=== PATIENT | male | born 1955 | race African-American/Black ===

== ENCOUNTER 2022-04-05 19:43 | Inpatient (IN) | payer OTHER, MEDICAID ==
[~2022-04-05] VITALS: Ht 180.3 cm; Wt 106.6 kg
[2022-04-05 23:37] LABS: EOSINOPHILS % 1.5 % (0.0-5.0); HEMATOCRIT. 39.3 % (42.0-52.0); HEMOGLOBIN. 13.1 g/dL (14.0-18.0); LYMPHOCYTES % 24.8 % (20.0-50.0); MEAN CORPUSCULAR HEMOGLOBIN 28.4 pg (28.0-32.0); MEAN CORPUSCULAR VOLUME 84.8 fL (80.0-94.0); MEAN PLATELET VOLUME 7.5 fl (7.4-10.4); MONOCYTES % 8.3 % (2.0-8.0); NEUTROPHILS % 64.4 % (40.0-76.0); PLATELET 346 x1000/uL (130-400); RED BLOOD CELL COUNT 4.63 mill/uL (4.7-6.1); RED CELL DISTRIBUTION WIDTH 15.5 % (11.6-14.6)
[2022-04-06 00:33] LABS: CHLORIDE 106 mEq/L (98-107)
[2022-04-06 01:56] LABS: CLARITY URINE CLEAR (CLEAR); COLOR URINE DARK YELLOW (YELLOW); KETONES URINE TRACE (NEGATIVE); LEUKOCYTE ESTERASE URINE NEGATIVE (NEGATIVE); NITRITE URINE NEGATIVE (NEGATIVE); OCCULT BLOOD URINE TRACE (NEGATIVE); PROTEIN URINE 2+ (NEGATIVE); SPECIFIC GRAVITY URINE 1.038 (1.005-1.030)
[2022-04-06] MEDS ORDERED: ONDANSETRON HCL 4MG/2ML INJ IV PRN (02:30)
[2022-04-06] MEDS ORDERED: HYDROCODONE/ACETAMINOPHEN 5/325MG TABLET PO PRN (02:30)
[2022-04-06] MEDS ORDERED: GUAIFENESIN 200MG/10ML SUGAR FREE UDC PO PRN (02:30)
[2022-04-06] MEDS ORDERED: MAGNESIUM/ALUMINUM HYDROXIDE/SIMETHICONE 30ML UDC PO PRN ×2 (02:30→17:00)
[2022-04-06] MEDS ORDERED: CLONIDINE 0.1MG TABLET PO PRN (02:30)
[2022-04-06] MEDS ORDERED: ACETAMINOPHEN 325MG TABLET PO PRN ×2 (02:30)
[2022-04-06 06:14] LABS: BASOPHILS % 0.8 % (0.0-2.0); HEMATOCRIT. 37.7 % (42.0-52.0); HEMOGLOBIN. 12.6 g/dL (14.0-18.0); LYMPHOCYTES % 16.2 % (20.0-50.0); MEAN CORPUSCULAR HEMOGLOBIN 28.2 pg (28.0-32.0); MEAN CORPUSCULAR VOLUME 84.3 fL (80.0-94.0); MEAN PLATELET VOLUME 7.6 fl (7.4-10.4); MONOCYTES % 6.7 % (2.0-8.0); NEUTROPHILS % 75.3 % (40.0-76.0); PLATELET 331 x1000/uL (130-400); RED BLOOD CELL COUNT 4.47 mill/uL (4.7-6.1); RED CELL DISTRIBUTION WIDTH 15.3 % (11.6-14.6)
[2022-04-06 06:33] LABS: CHLORIDE 108 mEq/L (98-107)
[2022-04-06 06:50] LABS: PHOSPHORUS 3.3 mg/dL (2.5-4.9)
[2022-04-06 06:56] LABS: FOLIC ACID (FOLATE) SERUM 9.5 ng/mL (>5.38)
[2022-04-06 07:08] LABS: VITAMIN B12 SERUM 363 pg/mL (211-911)
[2022-04-06] MEDS ORDERED: POTASSIUM CHLORIDE INJ 40 MEQ in DEXT 5% WATER 250 ML IV ONE (10:00)
[2022-04-06] MEDS ORDERED: KCL 20MEQ/100ML X 2 FOR TOTAL KCL 40MEQ/200ML IV SCH (10:00)
[2022-04-06] MEDS ORDERED: NALOXONE HCL 0.4MG/ML VIAL IV PRN (10:15)
[2022-04-06] MEDS: ENOXAPARIN 30MG/0.3ML SYR SUBCUT SCH ×2 (10:36→22:29)
[2022-04-06 15:15] VITALS: BP 142/80
[2022-04-06 16:00] VITALS: BP 142/80
[2022-04-06] MEDS ORDERED: MAGNESIUM HYDROXIDE 400MG/5ML 30ML UDC PO PRN (17:00)
[2022-04-06] MEDS: PANTOPRAZOLE SODIUM 40 MG/VIAL IV SCH (17:56)
[2022-04-06] MEDS ORDERED: IOHEXOL-350 100 ML BOTTLE ONE (18:12)
[2022-04-06] MEDS ORDERED: PNEUMOCOCCAL 23-VAL P-SAC VAC 0.5 ML IM ONE (18:45)
[2022-04-06 20:00] VITALS: BP 151/95
[2022-04-07] VITALS: BP 148/81
[2022-04-07 04:00] VITALS: BP 153/87
[2022-04-07 08:00] VITALS: BP 149/95
[2022-04-07 08:03] LABS: BASOPHILS % 0.9 % (0.0-2.0); EOSINOPHILS % 0.9 % (0.0-5.0); HEMATOCRIT. 38.1 % (42.0-52.0); HEMOGLOBIN. 12.5 g/dL (14.0-18.0); LYMPHOCYTES % 17.3 % (20.0-50.0); MEAN CORPUSCULAR VOLUME 85.1 fL (80.0-94.0); MONOCYTES % 6.9 % (2.0-8.0); PLATELET 346 x1000/uL (130-400); RED BLOOD CELL COUNT 4.47 mill/uL (4.7-6.1); RED CELL DISTRIBUTION WIDTH 15.6 % (11.6-14.6)
[2022-04-07] MEDS ORDERED: SIMETHICONE/SOD BICARB/CIT AC 1 EACH GRAN.EF.PK ONE (08:23)
[2022-04-07] MEDS ORDERED: BARIUM SULFATE 176 GM SUSP.RECON ONE (08:23)
[2022-04-07] MEDS ORDERED: EZ-HD SUSPENSION(BARIUM SULFATE 340GM) PO ONE (08:23)
[2022-04-07] MEDS: PANTOPRAZOLE SODIUM 40 MG/VIAL IV SCH (09:27)
[2022-04-07] MEDS: ENOXAPARIN 30MG/0.3ML SYR SUBCUT SCH ×2 (09:27→21:23)
[2022-04-07] MEDS: SODIUM CHLORIDE 0.9% 1,000 ML IV SCH ×2 (09:28→14:38)
[2022-04-07 10:59] LABS: FERRITIN 418 ng/mL (22-322)
[2022-04-07 11:10] LABS: HEPATITIS B SURFACE ANTIGEN NEGATIVE
[2022-04-07 12:00] VITALS: BP 147/98
[2022-04-07] MEDS: FUROSEMIDE 40MG/4ML VIAL IVP SCH ×2 (14:36→17:38)
[2022-04-07] MEDS: METOPROLOL TARTRATE 25MG TABLET PO SCH ×2 (14:37→21:24)
[2022-04-07] MEDS: SPIRONOLACTONE 25MG TABLET PO SCH (14:37)
[2022-04-07 16:00] VITALS: BP 112/83
[2022-04-07] MEDS ORDERED: HYDROXYZINE 25MG TABLET PO PRN (17:00)
[2022-04-07 20:00] VITALS: BP 115/84
[2022-04-07] MEDS ORDERED: POTASSIUM CHLORIDE 20MEQ TABLET SR PO NR (20:00)
[2022-04-07] MEDS ORDERED: BENZTROPINE MESYLATE 1MG TABLET PO SCH (21:00)
[2022-04-07] MEDS: QUETIAPINE FUMARATE 50MG TABLET PO SCH (21:23)
[2022-04-08] VITALS: BP 125/84
[2022-04-08 04:00] VITALS: BP 127/86
[2022-04-08] MEDS: FUROSEMIDE 40MG/4ML VIAL IVP SCH (05:50)
[2022-04-08 08:00] VITALS: BP 141/97
[2022-04-08] MEDS: SPIRONOLACTONE 25MG TABLET PO SCH (08:47)
[2022-04-08] MEDS: PANTOPRAZOLE SODIUM 40 MG/VIAL IV SCH (08:47)
[2022-04-08] MEDS: QUETIAPINE FUMARATE 50MG TABLET PO SCH (08:47)
[2022-04-08] MEDS: ENOXAPARIN 30MG/0.3ML SYR SUBCUT SCH (08:47)
[2022-04-08] MEDS: METOPROLOL TARTRATE 25MG TABLET PO SCH (08:47)
[2022-04-08 09:25] LABS: BASOPHILS % 0.7 % (0.0-2.0); EOSINOPHILS % 1.3 % (0.0-5.0); HEMATOCRIT. 38.7 % (42.0-52.0); HEMOGLOBIN. 12.6 g/dL (14.0-18.0); LYMPHOCYTES % 20.2 % (20.0-50.0); MEAN CORPUSCULAR HEMOGLOBIN 28.3 pg (28.0-32.0); MEAN PLATELET VOLUME 7.7 fl (7.4-10.4); MONOCYTES % 8.4 % (2.0-8.0); NEUTROPHILS % 69.4 % (40.0-76.0); PLATELET 306 x1000/uL (130-400); RED BLOOD CELL COUNT 4.45 mill/uL (4.7-6.1)
[2022-04-08 12:00] VITALS: BP 138/98
[2022-04-08] MEDS ORDERED: METO25TA6 PO (13:32)
[2022-04-08] MEDS ORDERED: QUET50TA PO (13:32)
[2022-04-08] MEDS ORDERED: BENZ1TAB7 PO (13:32)
[2022-04-08] MEDS ORDERED: FURO-151 PO (13:32)
[2022-04-08 14:21] VITALS: BP 138/98
== END 2022-04-08 15:50 | disposition home or self-care (01) | DRG 291 ==
LOC: ER 19:43 → SUPCPDRO 04-06 02:22 → MICUSO 04-06 04:05 → 8WST 04-06 15:15
PROVIDERS: ADMIT Internal Medicine; ATTEND Internal Medicine
DX: I13.0 Hypertensive heart and chronic kidney disease with heart failure and stage 1 through stage 4 chronic kidney disease, or unspecified chronic kidney disease (principal); I50.23 Acute on chronic systolic (congestive) heart failure; F20.0 Paranoid schizophrenia; N17.9 Acute kidney failure, unspecified; R17 Unspecified jaundice; E11.22 Type 2 diabetes mellitus with diabetic chronic kidney disease; Z20.822 Contact with and (suspected) exposure to COVID-19; R19.7 Diarrhea, unspecified; N18.9 Chronic kidney disease, unspecified; R13.10 Dysphagia, unspecified; E87.6 Hypokalemia; E11.65 Type 2 diabetes mellitus with hyperglycemia; R77.8 Other specified abnormalities of plasma proteins; R06.01 Orthopnea; D64.9 Anemia, unspecified; I25.2 Old myocardial infarction; Z91.14 Patient's other noncompliance with medication regimen; R10.13 Epigastric pain; D35.02 Benign neoplasm of left adrenal gland
CPT/HCPCS: 36415; 71045; 74176; 74220; 76770; 78580; 80048; 80053; 80076; 81003; 82248; 82607; 82728; 82746; 83540; 83550; 83735; 83880; 84100; 84443; 84484; 85025; 85379; 86705; 86709; 86803; 87015; 87045; 87340; 87426; 87427; 87449; 87493; 89055; 90732; 93005; 93306; 93970; 99285; C9113; J1650; J1940; J3480; J7030; J7517; Q9967

== ENCOUNTER 2022-05-01 22:46 | Emergency (ER) | payer OTHER, MEDICAID ==
[~2022-05-01] VITALS: Ht 172.7 cm; Wt 89.2 kg
[~2022-05-01 22:46] MED LIST: BENZ1TAB7 PO; FURO-151 PO; METO25TA6 PO; QUET50TA PO
[2022-05-01 23:59] LABS: BASOPHILS % 0.8 % (0.0-2.0); EOSINOPHILS % 1.1 % (0.0-5.0); HEMOGLOBIN. 11.7 g/dL (14.0-18.0); LYMPHOCYTES % 11.4 % (20.0-50.0); MEAN CORPUSCULAR HEMOGLOBIN 27.8 pg (28.0-32.0); MEAN CORPUSCULAR VOLUME 85.7 fL (80.0-94.0); MEAN PLATELET VOLUME 6.9 fl (7.4-10.4); MONOCYTES % 7.8 % (2.0-8.0); NEUTROPHILS % 78.9 % (40.0-76.0); PLATELET 343 x1000/uL (130-400); RED CELL DISTRIBUTION WIDTH 16.1 % (11.6-14.6)
[2022-05-02 00:08] LABS: CHLORIDE 105 mEq/L (98-107)
[2022-05-02 00:15] LABS: CREATINE KINASE 178 IU/L (39-308); ETHANOL BLOOD < 10 mg/dL
[2022-05-02 02:37] LABS: CLARITY URINE CLEAR (CLEAR); COLOR URINE YELLOW (YELLOW); KETONES URINE NEGATIVE (NEGATIVE); LEUKOCYTE ESTERASE URINE NEGATIVE (NEGATIVE); NITRITE URINE NEGATIVE (NEGATIVE); OCCULT BLOOD URINE NEGATIVE (NEGATIVE); PH URINE 5.5 (4.5-8.0); PROTEIN URINE 1+ (NEGATIVE); SPECIFIC GRAVITY URINE 1.009 (1.005-1.030)
[2022-05-02] MEDS ORDERED: OLANZAPINE 10MG TABLET PO SCH (02:45)
[2022-05-02] MEDS ORDERED: LACTULOSE 20G/30ML UDC PO NR (02:45)
[2022-05-02 03:12] LABS: *AMPHETAMINES SCREEN URINE NEGATIVE (NEGATIVE); *BARBITURATES SCREEN URINE NEGATIVE (NEGATIVE); *BENZODIAZEPINES SCREEN URINE NEGATIVE (NEGATIVE); *COCAINE SCREEN URINE NEGATIVE (NEGATIVE); CANNABINOID URINE SCREEN PRESUMTIVE POSITIVE (NEGATIVE); METHADONE URINE SCREEN NEGATIVE (NEGATIVE); OPIATES URINE SCREEN NEGATIVE (NEGATIVE); PHENCYCLIDINE URINE SCREEN NEGATIVE (NEGATIVE)
[2022-05-02] MEDS ORDERED: POTASSIUM CHLORIDE 20MEQ TABLET SR PO ONE (13:30)
[2022-05-02] MEDS ORDERED: FUROSEMIDE 40MG TABLET PO SCH (16:30)
[2022-05-02] MEDS ORDERED: METOPROLOL SUCCINATE 50MG ER TABLET PO SCH (17:00)
[2022-05-02] MEDS ORDERED: BENZTROPINE MESYLATE 1MG TABLET PO ONE (17:00)
[2022-05-02 20:34] VITALS: BP 121/76
[2022-05-02] MEDS ORDERED: QUETIAPINE FUMARATE 50MG TABLET PO SCH (21:00)
== END 2022-05-02 20:55 ==
LOC: ER 22:46
DX: R41.82 Altered mental status, unspecified (principal); I49.9 Cardiac arrhythmia, unspecified; Z20.822 Contact with and (suspected) exposure to COVID-19
CPT/HCPCS: 36415; 70450; 71045; 80048; 80053; 80305; 80307; 80320; 80329; 81003; 82140; 82550; 85025; 87426; 93005; 99285; C9803; U0003; U0005; G0480